=== PATIENT | male | born 2000 | race African-American/Black ===

== ENCOUNTER 2019-02-03 23:56 | Emergency (ER) | payer MEDICAID ==
[~2019-02-03] VITALS: Ht 190.5 cm; Wt 80.3 kg
[2019-02-04 00:13] VITALS: Ht 190.5 cm; Wt 80.3 kg
[2019-02-04 00:25] LABS: BASOPHIL % 0.7 % (0-2); PLATELET COUNT 183 x10^3mcL (130-400)
[2019-02-04 00:35] LABS: AMPHETAMINE QUAL UR NONE DETECTED (See below)
[2019-02-04 01:08] LABS: CALCIUM 8.5 mg/dL (8.5-10.1); CARBON DIOXIDE 23.3 mmol/L (21-32); CHLORIDE SERUM 101 mmol/L (98-107); GFR1 > 60 mL/min; GLUCOSE SERUM 118 mg/dL (74-106); POTASSIUM SERUM 3.4 mmol/L (3.5-5.1); SODIUM SERUM 138 mmol/L (136-145)
[2019-02-04 01:15] LABS: ALBUMIN 3.9 g/dL (3.4-5.0); ALKALINE PHOSPHATASE 79 U/L (46-116); ALT/SGPT 60 U/L (16-63); AST/SGOT 35 U/L (15-37); BILIRUBIN TOTAL 0.36 mg/dL (0.20-1.00); TOTAL PROTEIN, SERUM 7.6 g/dL (6.4-8.2)
[2019-02-04 01:51] VITALS: BP 117/57
== END 2019-02-04 01:51 | disposition home or self-care (01) ==
LOC: ED 23:56
PROVIDERS: Emergency Medicine
DX: G40.909 Epilepsy, unspecified, not intractable, without status epilepticus (principal)
CPT/HCPCS: G0480; J2310; J7030